=== PATIENT | male | born 1955 | race Hispanic/Latino ===

== ENCOUNTER 2017-06-03 19:08 | Observation (INO) | payer BC, OTHER ==
[2017-06-03 19:09] VITALS: PULSE 118; BMI 29.8
[2017-06-03] MEDS ORDERED: Sodium Chloride 0.9% 1,000 ML ONE ×2 (19:31→20:34)
[2017-06-03] MEDS ORDERED: Labetalol 25mg/5ml Syringe ONE ×2 (19:32→19:44)
[2017-06-03] MEDS ORDERED: Sodium Chloride 0.9% 1,000 ML IV ONE ×2 (19:38→19:52)
[2017-06-03 19:41] LABS: BASO # 0.1 K/uL (0.0-0.2); BASO % 0.8 % (0.0-2.0); EOS # 0.2 K/uL (0.0-0.7); EOS % 2.9 % (0.0-4.0); HEMOGLOBIN 15.2 g/dL (12.0-18.0); LYMPH # 1.7 K/uL (1.0-4.3); LYMPH % 21.6 % (20.0-40.0); MEAN CELL VOLUME 89.5 fL (80.0-94.0); MEAN CORPUSCULAR HEMOGLOBIN 31.2 pg (27.0-31.0); MEAN CORPUSCULAR HGB CONC 34.8 g/dL (33.0-37.0); MEAN PLATELET VOLUME 9.1 fL (7.2-11.7); MONO # 0.7 K/uL (0.0-0.8); MONO % 8.8 % (0.0-10.0); NEUT # 5.1 K/uL (1.8-7.0); NEUT % 65.9 % (50.0-75.0); RBC 4.86 Mil/uL (4.40-5.90); RED CELL DISTRIBUTION WIDTH 13.6 % (11.5-14.5); WHITE BLOOD COUNT 7.7 K/uL (4.8-10.8)
[2017-06-03 19:51] LABS: INR 1.2; PROTHROMBIN TIME 13.7 SECONDS (9.7-12.2)
[2017-06-03] MEDS ORDERED: Labetalol 25mg/5ml Syringe IVP STA (19:51)
[2017-06-03] MEDS ORDERED: Labetalol 25mg/5ml Syringe IV STA (19:51)
[2017-06-03 19:54] LABS: ALB/GLOB RATIO 1.2 (1.0-2.1); ALBUMIN 4.3 g/dL (3.5-5.0); ALT/SGPT 32 U/L (21-72); AST/SGOT 32 U/L (17-59); BLOOD UREA NITROGEN 20 mg/dL (9-20); CALCIUM 9.5 mg/dl (8.6-10.4); GFR AFRICAN-AMERICAN > 60; GFR NON-AFRICAN AMERICAN 56
[2017-06-03] MEDS ORDERED: Verapamil 2 ML ONE (19:59)
--- NOTE | 2017-06-03 21:05 | C.PDOC ---
History Of Present Illness 62 y/o male with hx of rapid atrial flutter was sent to ED by his PMD . Patient states he went for a routine visit and EKG showed rapid atrial flutter. Patient was admitted last year in May here and sent to [place] for cardiac ablation. Patient denies chest pain, SOB, palpitations or any physical complaints and he is completely asymptomatic. Time Seen by Provider: 06/03/17 19:26 Chief Complaint (Nursing): Palpitations History Per: Patient History/Exam Limitations: no limitations Onset/Duration Of Symptoms: Hrs Current Symptoms Are (Timing): Still Present Associated Symptoms: denies: Nausea, Dyspnea, Diaphoresis, Syncope Modifying Factors: None Exacerbating Factors: None Alleviating Factors: None Recent travel outside of the [place]: No Past Medical History Reviewed: Historical Data, Nursing Documentation, Vital Signs Vital Signs: Last Vital Signs Temp 97.9 F 06/03/17 19:26 Pulse 89 06/03/17 20:25 Resp 19 06/03/17 20:25 BP 105/64 06/03/17 20:25 Pulse Ox 96 06/03/17 21:05 - Medical History PMH: Cardia Arrhythmia Family History: States: No Known Family Hx - Social History Hx Alcohol Use: No Hx Substance Use: No - Immunization History Hx Tetanus Toxoid Vaccination: No Hx Influenza Vaccination: Yes Hx Pneumococcal Vaccination: No Review Of Systems Constitutional: Negative for: Fever, Chills Cardiovascular: Negative for: Chest Pain, Palpitations Respiratory: Negative for: Shortness of Breath Gastrointestinal: Negative for: Nausea, Vomiting, Abdominal Pain, Diarrhea Neurological: Negative for: Weakness, Numbness Physical Exam - Physical Exam Appears: Well, Non-toxic, No Acute Distress, Other (Comfortable ) Skin: Normal Color, Warm, Dry Head: Atraumatic, Normacephalic Eye(s): bilateral: Normal Inspection Oral Mucosa: Moist Neck: Supple Chest: Symmetrical, No Tenderness Cardiovascular: Rhythm Regular (tachycardic) Respiratory: Normal Breath Sounds, No Decreased Breath Sounds, No Rales, No Rhonchi, No Wheezing Gastrointestinal/Abdominal: Soft, No Tenderness, No Distention Extremity: Normal ROM, No Tenderness, No Pedal Edema, No Deformity, No Swelling Extremity: Bilateral: Normal Color And Temperature, Normal ROM Neurological/Psych: Oriented x3, Normal Speech, Normal Cognition ED Course And Treatment - Laboratory Results Result Diagrams: 06/03/17 19:37 06/03/17 19:37 O2 Sat by Pulse Oximetry: 96 (RA) Pulse Ox Interpretation: Normal Medical Decision Making Medical Decision Making: Administered Trandate and Verapamil IV fluids. Ordered EKG, blood work, and CXR. EKG Result: - Atrial flutter at 155bmp - LAD - RBBB - Q waves in 3rd and AVF - No acute ST changes Disposition - Disposition Forms: Redicam (Czech) - Scribe Statement The provider has reviewed the documentation as recorded by the Scribe Leobardo Peña All medical record entries made by the Scribe were at my direction and personally dictated by me. I have reviewed the chart and agree that the record accurately reflects my personal performance of the history, physical exam, medical decision making, and the department course for this patient. I have also personally directed, reviewed, and agree with the discharge instructions and disposition.
[2017-06-03 23:44] VITALS: RESP 20
[2017-06-04 07:00] LABS: BASO # 0.1 K/uL (0.0-0.2); BASO % 0.8 % (0.0-2.0); EOS # 0.2 K/uL (0.0-0.7); EOS % 3.4 % (0.0-4.0); HEMOGLOBIN 12.9 g/dL (12.0-18.0); LYMPH # 1.4 K/uL (1.0-4.3); LYMPH % 20.5 % (20.0-40.0); MEAN CELL VOLUME 89.9 fL (80.0-94.0); MEAN CORPUSCULAR HEMOGLOBIN 31.3 pg (27.0-31.0); MEAN CORPUSCULAR HGB CONC 34.9 g/dL (33.0-37.0); MEAN PLATELET VOLUME 9.6 fL (7.2-11.7); MONO # 0.6 K/uL (0.0-0.8); MONO % 9.1 % (0.0-10.0); NEUT # 4.6 K/uL (1.8-7.0); NEUT % 66.2 % (50.0-75.0); RBC 4.11 Mil/uL (4.40-5.90); RED CELL DISTRIBUTION WIDTH 13.6 % (11.5-14.5); WHITE BLOOD COUNT 6.9 K/uL (4.8-10.8)
[2017-06-04 07:26] LABS: ALB/GLOB RATIO 1.2 (1.0-2.1); ALBUMIN 3.4 g/dL (3.5-5.0); ALT/SGPT 26 U/L (21-72); AST/SGOT 22 U/L (17-59); BLOOD UREA NITROGEN 19 mg/dL (9-20); CALCIUM 8.3 mg/dl (8.6-10.4); GFR AFRICAN-AMERICAN > 60; GFR NON-AFRICAN AMERICAN 56
--- NOTE | 2017-06-04 08:12 | RAD ---
PROCEDURE: CHEST RADIOGRAPH, 1 VIEW HISTORY: PALPITATIONS COMPARISON: Chest radiograph dated 04/01/2016. FINDINGS: LUNGS: Clear. PLEURA: No pneumothorax or pleural fluid seen. CARDIOVASCULAR: Normal. OSSEOUS STRUCTURES: Unchanged. VISUALIZED UPPER ABDOMEN: Normal. OTHER FINDINGS: None. IMPRESSION: No active disease.
[2017-06-04] MEDS: Enoxaparin 60 mg Syringe SC SCH ×2 (10:33→21:21)
--- NOTE | 2017-06-04 17:40 | CARD ---
APPROVED REPORT EXAM: Two-dimensional and M-mode echocardiogram with Doppler and color Doppler. Other Information Quality : GoodRhythm : INDICATION Atrial Fibrillation M-Mode DIMENSIONS RVDd1.40 (2.1-3.2cm)Left Atrium (MM)4.02 (2.5-4.0cm) IVSd1.11 (0.7-1.1cm)Aortic Root3.83 (2.2-3.7cm) LVDd5.64 (4.0-5.6cm)Aortic Cusp Exc.1.87 (1.5-2.0cm) PWd1.00 (0.7-1.1cm)FS (%) 37 % LVDs3.54 (2.0-3.8cm)LVEF (%)67 (>50%) Mitral Valve MV E Qwaybaip06.1cm/sMV A Soxvsitm30.5cm/sE/A ratio1.0 TDI E/Lateral E'0.0E/Medial E'0.0 Tricuspid Valve TR Peak Pgrvphnv622ku/sTR Peak Gr.[id number] LEFT VENTRICLE The left ventricle is normal size. There is borderline concentric left ventricular hypertrophy. The left ventricular function is normal. The left ventricular ejection fraction is within the normal range. There is normal LV segmental wall motion. Transmitral Doppler flow pattern is Grade I-abnormal relaxation pattern. RIGHT VENTRICLE The right ventricle is normal size. There is normal right ventricular wall thickness. The right ventricular systolic function is normal. ATRIA The left atrium size is normal. The right atrium size is normal. AORTIC VALVE The aortic valve is not well visualized. There is mild aortic regurgitation. There is no aortic valvular stenosis. MITRAL VALVE The mitral valve is normal in structure. There is no mitral valve stenosis. There is no mitral valve regurgitation noted. TRICUSPID VALVE The tricuspid valve is normal in structure. There is no tricuspid valve regurgitation noted. GREAT VESSELS The aortic root is mildly enlarged. The IVC is normal in size and collapses >50% with inspiration. PERICARDIAL EFFUSION There is a trace circumferential pericardial effusion. <Conclusion> The left ventricle is normal size. There is borderline concentric left ventricular hypertrophy. The left ventricular function is normal. The left ventricular ejection fraction is within the normal range. There is normal LV segmental wall motion. Transmitral Doppler flow pattern is Grade I-abnormal relaxation pattern. There is mild aortic regurgitation. The aortic root is mildly enlarged.
--- NOTE | 2017-06-04 22:27 | CP.PCM.CON ---
History of Present Illness - History of Present Illness History of Present Illness: Patient seen and evaluated 62 M with hx of A Flutter s/p ablation admitted for recurrent Flutter responeded to [facility] (formerly [facility]3] and now in [facility] Blood work revealed Hypothyroidism Correct hypothyroidism Recommend repeat ablation plus antiarrhythmic therapy Past Patient History - Past Medical History & Family History Past Medical History?: No - Past Social History Smoking Status: Never Smoked - CARDIAC Hx Cardia Arrhythmia: Yes - PULMONARY Hx Respiratory Disorders: No - NEUROLOGICAL Hx Neurological Disorder: No - HEENT Hx HEENT Problems: No - RENAL Hx Chronic Kidney Disease: No - ENDOCRINE/METABOLIC Hx Endocrine Disorders: No - HEMATOLOGICAL/ONCOLOGICAL Hx Blood Disorders: No - INTEGUMENTARY Hx Dermatological Problems: No - MUSCULOSKELETAL/RHEUMATOLOGICAL Hx Musculoskeletal Disorders: No - GASTROINTESTINAL Hx Gastrointestinal Disorders: No - GENITOURINARY/GYNECOLOGICAL Hx Genitourinary Disorders: No - PSYCHIATRIC Hx Substance Use: No - SURGICAL HISTORY Hx Surgeries: Yes Hx Herniorrhaphy: Yes Other/Comment: Cardiac Abblation - ANESTHESIA Hx Anesthesia: Yes Hx Anesthesia Reactions: No Hx Malignant Hyperthermia: No Meds Allergies/Adverse Reactions: Allergies Allergy/AdvReac Type Severity Reaction Status Date / Time No Known Allergies Allergy Verified 04/01/16 11:09 - Medications Medications: Current Medications Diltiazem HCl (Cardizem) 30 mg PO QID [facility] Last Admin: 06/04/17 21:21 Dose: 30 mg Enoxaparin Sodium (Lovenox) 60 mg SC Q12 [facility] Last Admin: 06/04/17 21:21 Dose: 60 mg Metoprolol Tartrate (Lopressor) 25 mg PO BID [facility] Last Admin: 06/04/17 18:04 Dose: 25 mg Pneumococcal Polyvalent Vaccine (Pneumovax 23 Vaccine) 0.5 ml IM .ONCE ONE Stop: 06/05/17 10:01 Results - Vital Signs Recent Vital Signs: Last Vital Signs Temp 97.9 F 06/04/17 15:08 Pulse 71 06/04/17 16:00 Resp 20 06/04/17 15:08 BP 136/87 06/04/17 18:04 Pulse Ox 97 06/04/17 15:08 - Labs Result Diagrams: 06/04/17 06:43 06/04/17 06:43 Labs: Laboratory Results - last 24 hr 06/03/17 06/04/17 06/04/17 23:19 06:43 06:43 WBC 6.9 RBC 4.11 L Hgb 12.9 D Hct 37.0 MCV 89.9 MCH 31.3 H MCHC 34.9 RDW 13.6 Plt Count 162 MPV 9.6 Neut % (Auto) 66.2 Lymph % (Auto) 20.5 Wood % (Auto) 9.1 Eos % (Auto) 3.4 Baso % (Auto) 0.8 Neut # (Auto) 4.6 Lymph # (Auto) 1.4 [place] # (Auto) 0.6 Eos # (Auto) 0.2 Baso # (Auto) 0.1 Sodium 143 Potassium 4.0 Chloride 108 H Carbon Dioxide 24 Anion Gap 14 BUN 19 Creatinine 1.3 Est GFR ( Amer) > 60 Est GFR (Non-Af Amer) 56 Random Glucose 97 Calcium 8.3 L Total Bilirubin 0.3 AST 22 ALT 26 Alkaline Phosphatase 54 Troponin I < 0.0120 Total Protein 6.3 Albumin 3.4 L D Globulin 2.8 Albumin/Globulin Ratio 1.2 Free T4 Free T3 pg/mL TSH 3rd Generation 22.80 H 06/04/17 06/04/17 13:55 13:55 WBC RBC Hgb Hct MCV MCH MCHC RDW Plt Count MPV Neut % (Auto) Lymph % (Auto) [place] % (Auto) Eos % (Auto) Baso % (Auto) Neut # (Auto) Lymph # (Auto) Wood # (Auto) Eos # (Auto) Baso # (Auto) Sodium Potassium Chloride Carbon Dioxide Anion Gap BUN Creatinine Est GFR ( Amer) Est GFR (Non-Af Amer) Random Glucose Calcium Total Bilirubin AST ALT Alkaline Phosphatase Troponin I Total Protein Albumin Globulin Albumin/Globulin Ratio Free T4 0.58 L Free T3 pg/mL 2.98 TSH 3rd Generation 14.10 H
[2017-06-05 09:12] VITALS: PULSE 74; TEMP 97.5; O2SAT 97
[2017-06-05] MEDS ORDERED: Pneumococcal 23-Valent Vaccine IM ONE (10:00)
[2017-06-05 10:13] VITALS: BP 130/74
[2017-06-05] MEDS: Enoxaparin 60 mg Syringe SC SCH (10:13)
--- NOTE | 2017-06-05 16:27 | CP.PCM.HP ---
Past Patient History - Past Medical History & Family History Past Medical History?: No - Past Social History Smoking Status: Never Smoked - CARDIAC Hx Cardia Arrhythmia: Yes - PULMONARY Hx Respiratory Disorders: No - NEUROLOGICAL Hx Neurological Disorder: No - HEENT Hx HEENT Problems: No - RENAL Hx Chronic Kidney Disease: No - ENDOCRINE/METABOLIC Hx Endocrine Disorders: No - HEMATOLOGICAL/ONCOLOGICAL Hx Blood Disorders: No - INTEGUMENTARY Hx Dermatological Problems: No - MUSCULOSKELETAL/RHEUMATOLOGICAL Hx Musculoskeletal Disorders: No - GASTROINTESTINAL Hx Gastrointestinal Disorders: No - GENITOURINARY/GYNECOLOGICAL Hx Genitourinary Disorders: No - PSYCHIATRIC Hx Substance Use: No - SURGICAL HISTORY Hx Surgeries: Yes Hx Herniorrhaphy: Yes Other/Comment: Cardiac Abblation - ANESTHESIA Hx Anesthesia: Yes Hx Anesthesia Reactions: No Hx Malignant Hyperthermia: No Meds Home Medications: Home Medication List Medication Instructions Recorded Confirmed Type Aspirin [Aspirin EC] 325 mg PO DAILY #30 ect 06/05/17 Rx Levothyroxine [Synthroid] 25 mcg PO DAILY #30 tab 06/05/17 Rx Metoprolol Tartrate [Lopressor] 25 mg PO DAILY #30 tab 06/05/17 Rx diltiaZEM CD [Cardizem CD] 180 mg PO DAILY #30 c24 06/05/17 Rx Allergies/Adverse Reactions: Allergies Allergy/AdvReac Type Severity Reaction Status Date / Time No Known Allergies Allergy Verified 04/01/16 11:09 Results - Vital Signs Recent Vital Signs: Last Vital Signs Temp 97.5 F L 06/05/17 09:11 Pulse 74 06/05/17 09:11 Resp 20 06/05/17 09:11 BP 130/74 06/05/17 10:11 Pulse Ox 97 06/05/17 09:11 - Labs Result Diagrams: 06/04/17 06:43 06/04/17 06:43
--- NOTE | 2017-06-05 16:28 | CP.PCM.DIS ---
Provider - Provider Date of Admission: 06/03/17 21:01 Attending physician: Mary Ann Pollack MD Hospital Course - Lab Results Lab Results: Most Recent Lab Values WBC 6.9 K/uL (4.8-10.8) 06/04/17 06:43 RBC 4.11 Mil/uL (4.40-5.90) L 06/04/17 06:43 Hgb 12.9 g/dL (12.0-18.0) D 06/04/17 06:43 Hct 37.0 % (35.0-51.0) 06/04/17 06:43 MCV 89.9 fL (80.0-94.0) 06/04/17 06:43 MCH 31.3 pg (27.0-31.0) H 06/04/17 06:43 MCHC 34.9 g/dL (33.0-37.0) 06/04/17 06:43 RDW 13.6 % (11.5-14.5) 06/04/17 06:43 Plt Count 162 K/uL (130-400) 06/04/17 06:43 MPV 9.6 fL (7.2-11.7) 06/04/17 06:43 Neut % (Auto) 66.2 % (50.0-75.0) 06/04/17 06:43 Lymph % (Auto) 20.5 % (20.0-40.0) 06/04/17 06:43 [place] % (Auto) 9.1 % (0.0-10.0) 06/04/17 06:43 Eos % (Auto) 3.4 % (0.0-4.0) 06/04/17 06:43 Baso % (Auto) 0.8 % (0.0-2.0) 06/04/17 06:43 Neut # (Auto) 4.6 K/uL (1.8-7.0) 06/04/17 06:43 Lymph # (Auto) 1.4 K/uL (1.0-4.3) 06/04/17 06:43 [place] # (Auto) 0.6 K/uL (0.0-0.8) 06/04/17 06:43 Eos # (Auto) 0.2 K/uL (0.0-0.7) 06/04/17 06:43 Baso # (Auto) 0.1 K/uL (0.0-0.2) 06/04/17 06:43 PT 13.7 SECONDS (9.7-12.2) H 06/03/17 19:37 INR 1.2 06/03/17 19:37 APTT 29 SECONDS (21-34) 06/03/17 19:37 Sodium 143 mmol/L (132-148) 06/04/17 06:43 Potassium 4.0 mmol/L (3.6-5.2) 06/04/17 06:43 Chloride 108 mmol/L (98-107) H 06/04/17 06:43 Carbon Dioxide 24 mmol/L (22-30) 06/04/17 06:43 Anion Gap 14 (10-20) 06/04/17 06:43 BUN 19 mg/dL (9-20) 06/04/17 06:43 Creatinine 1.3 mg/dL (0.8-1.5) 06/04/17 06:43 Est GFR ( Amer) > 60 06/04/17 06:43 Est GFR (Non-Af Amer) 56 06/04/17 06:43 Random Glucose 97 mg/dL (75-110) 06/04/17 06:43 Calcium 8.3 mg/dl (8.6-10.4) L 06/04/17 06:43 Total Bilirubin 0.3 mg/dL (0.2-1.3) 06/04/17 06:43 AST 22 U/L (17-59) 06/04/17 06:43 ALT 26 U/L (21-72) 06/04/17 06:43 Alkaline Phosphatase 54 U/L (38-126) 06/04/17 06:43 Troponin I < 0.0120 ng/mL (0.00-0.120) 06/04/17 06:43 Total Protein 6.3 g/dL (6.3-8.3) 06/04/17 06:43 Albumin 3.4 g/dL (3.5-5.0) L D 06/04/17 06:43 Globulin 2.8 gm/dL (2.2-3.9) 06/04/17 06:43 Albumin/Globulin Ratio 1.2 (1.0-2.1) 06/04/17 06:43 Free T4 0.58 ng/dL (0.78-2.19) L 06/04/17 13:55 Free T3 pg/mL 2.98 pg/mL (2.77-5.27) 06/04/17 13:55 TSH 3rd Generation 14.10 mIU/L (0.46-4.68) H 06/04/17 13:55 Discharge Plan - Discharge Medications Prescriptions: Aspirin [Aspirin EC] 325 mg PO DAILY #30 ect diltiaZEM CD [Cardizem CD] 180 mg PO DAILY #30 c24 Metoprolol Tartrate [Lopressor] 25 mg PO DAILY #30 tab Levothyroxine [Synthroid] 25 mcg PO DAILY #30 tab - Follow Up Plan Condition: GOOD Disposition: HOME/ ROUTINE
== END 2017-06-05 17:00 | disposition home or self-care (01) ==
LOC: C.ER 19:08 → C.6T 21:01 → C.9E 21:01
PROVIDERS: ADMIT Internal Medicine; ATTEND Internal Medicine
DX: I48.92 Unspecified atrial flutter (principal); I45.10 Unspecified right bundle-branch block; Z79.82 Long term (current) use of aspirin; Z79.899 Other long term (current) drug therapy; E03.9 Hypothyroidism, unspecified; Z23 Encounter for immunization
CPT/HCPCS: 36415; 71045; 80053; 84439; 84443; 84481; 84484; 85025; 85610; 85730; 90732; 93306; 96361; 96372; 96374; 96375; 99285; G0009; G0378; J1650; J7040

== ENCOUNTER 2018-05-09 07:22 | Outpatient (CLI) | payer OTHER | END 2018-05-09 07:23 | disposition home or self-care (01) | LOC: C.LAB 07:22 | DX: E03.9 Hypothyroidism, unspecified (principal); I10 Essential (primary) hypertension; I48.92 Unspecified atrial flutter ==

== ENCOUNTER 2018-06-14 07:43 | Day surgery (SDC) | payer OTHER ==
[2018-06-14 08:08] VITALS: BMI 30.5
[2018-06-14] MEDS ORDERED: Propofol 10 mg/ml Inj (20 ML) ONE (09:30)
--- NOTE | 2018-06-14 09:30 | CP.SDSHP ---
Same Day Surgery H & P - History Proposed Procedure: colonoscopy Pre-Op Diagnosis: screening - Previous Medical/Surgical History Cardiac: Hypertension Endocrine/Metabolic: Thyroid Disease - Allergies Allergies: Allergies No Known Allergies Allergy (Verified 06/14/18 08:03) - Physical Exam General Appearance: NAD Vital Signs: Vital Signs 06/14/18 07:50 Temperature 97.3 F L Pulse Rate 80 Respiratory 20 Rate Blood Pressure 107/75 O2 Sat by Pulse 100 Oximetry Mental Status: Alert & Oriented x3 Neuro: WNL Heart: WNL Lungs: WNL GI: WNL - {Optional Preform as Required} Abdomen: WNL - Impression Pt. Evaluated Today:Candidate for Anesthesia & Procedure: Yes - Date & Time Date: 06/14/18 Time: 09:30 Short Stay Discharge - Short Stay Discharge Admitting Diagnosis/Reason for Visit: SCREENING Disposition: HOME/ ROUTINE
[2018-06-14] MEDS ORDERED: Lactated Ringer's 500 ML IV SCH (09:45)
[2018-06-14 10:25] VITALS: O2SAT 98
[2018-06-14 10:55] VITALS: BP 123/75; PULSE 70; RESP 17; TEMP 98.5
== END 2018-06-14 10:50 | disposition home or self-care (01) ==
LOC: C.ENDO 07:43
PROVIDERS: ATTEND Internal Medicine Gastroenterology
DX: Z12.11 Encounter for screening for malignant neoplasm of colon (principal); I10 Essential (primary) hypertension; K57.90 Diverticulosis of intestine, part unspecified, without perforation or abscess without bleeding; K64.8 Other hemorrhoids
CPT/HCPCS: 45378; J2704; J3010